=== PATIENT | female | born 1950 | race Caucasian/White ===

== ENCOUNTER 2016-05-20 10:13 | Emergency (ER) | payer OTHER ==
[2016-05-20] MEDS ORDERED: FLUORI-I-STRIP RIGHT EYE ONE (11:49)
[2016-05-20] MEDS ORDERED: ALCAINE 0.5% OPHTH SOLN RIGHT EYE ONE (11:50)
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
[2016-05-20] MEDS ORDERED: LEVOFLOXACIN RIGHT EYE ONE (12:37)
[2016-05-20] MEDS ORDERED: NORCO-7.5 PO ONE (12:37)
[2016-05-20 12:58] VITALS: BP 148/89
== END 2016-05-20 12:58 | disposition home or self-care (01) ==
LOC: ED 10:13
DX: S01.111A Laceration without foreign body of right eyelid and periocular area, initial encounter (principal); S05.00XA Injury of conjunctiva and corneal abrasion without foreign body, unspecified eye, initial encounter; H53.8 Other visual disturbances; H53.2 Diplopia; H57.11 Ocular pain, right eye; R22.0 Localized swelling, mass and lump, head; G89.29 Other chronic pain; E07.9 Disorder of thyroid, unspecified; E66.9 Obesity, unspecified; Z79.899 Other long term (current) drug therapy; Z98.84 Bariatric surgery status; W20.8XXA Other cause of strike by thrown, projected or falling object, initial encounter